=== PATIENT | female | born 1985 | race Hispanic/Latino ===

== ENCOUNTER 2022-02-18 15:33 | Emergency (ER) | payer OTHER ==
[~2022-02-18] VITALS: Ht 152.4 cm; Wt 58.2 kg
[2022-02-18] MEDS ORDERED: VITA1MIS PO (16:25)
[2022-02-18] MEDS ORDERED: SUMA50TA2 PO (16:26)
[2022-02-18 18:03] VITALS: BP 111/70
== END 2022-02-18 18:12 | disposition home or self-care (01) ==
LOC: M ED 15:33
DX: S63.611A Unspecified sprain of left index finger, initial encounter (principal); X50.0XXA Overexertion from strenuous movement or load, initial encounter; Y92.9 Unspecified place or not applicable; Y93.89 Activity, other specified; Y99.9 Unspecified external cause status; G43.909 Migraine, unspecified, not intractable, without status migrainosus; Z88.6 Allergy status to analgesic agent